=== PATIENT | female | born 1970 | race Caucasian/White ===

== ENCOUNTER 2016-12-06 05:35 | Outpatient (CLI) | payer BC ==
[~2016-12-06] VITALS: Ht 177.8 cm; Wt 72.6 kg
[2016-12-07] MEDS ORDERED: IBUP-1773 PO (10:09)
== END 2016-12-06 10:48 ==
LOC: PREOP 05:35
PROVIDERS: ATTEND Obstetrics & Gynecology
DX: Z01.818 Encounter for other preprocedural examination (principal); N93.9 Abnormal uterine and vaginal bleeding, unspecified; N85.2 Hypertrophy of uterus

== ENCOUNTER 2016-12-07 07:51 | Day surgery (SDC) | payer BC ==
[~2016-12-07] VITALS: Ht 177.8 cm; Wt 72.6 kg
[~2016-12-07 07:51] MED LIST: LACTATED RINGERS 1,000 ML IV PRN
[2016-12-07 08:22] VITALS: BP 111/69
[2016-12-07] MEDS ORDERED: LACTATED RINGERS 1,000 ML IV ONE (08:26)
[2016-12-07] MEDS ORDERED: SEVOFLURANE (ULTANE) 15 ML INHAL SOLN ONE ×3 (08:26→09:35)
[2016-12-07] MEDS ORDERED: DEXAMETHASONE 10 MG/ML (DECADRON) 1 ML VIAL ONE (08:26)
[2016-12-07] MEDS ORDERED: LIDOCAINE 2% 20 ML (XYLOCAINE) VIAL ONE (08:26)
[2016-12-07] MEDS ORDERED: ONDANSETRON 4 MG/2 ML (SDV) Z0FRAN ONE ×2 (08:26→09:44)
[2016-12-07] MEDS ORDERED: MIDAZOLAM 2 MG/2 ML (VERSED) VIAL ONE (08:26)
[2016-12-07] MEDS ORDERED: fentaNYL INJECTION 100 MCG/2 ML AMP ONE (08:26)
[2016-12-07] MEDS ORDERED: proPOfol 200 MG/20 ML (DIPRIVAN) VIAL IV ONE (08:26)
[2016-12-07 08:27] LABS: BASOPHILS % (AUTO) 0 % (0-10); EOSINOPHILS # (AUTO) 0.1 10^3/uL (0.0-0.3); EOSINOPHILS % (AUTO) 1 % (0-10); LYMPHOCYTES # (AUTO) 1.4 X 10^3 (1.0-4.0); LYMPHOCYTES % (AUTO) 27 % (12-44); MEAN CORPUSCULAR HEMOGLOBIN 30 PG (25-34); MEAN CORPUSCULAR HGB CONC 33 G/DL (32-36); MEAN CORPUSCULAR VOLUME 91 FL (80-99); MEAN PLATELET VOLUME 10.3 FL (7.4-10.4); MONOCYTES # (AUTO) 0.7 X 10^3 (0.0-1.0); MONOCYTES % (AUTO) 12 % (0-12); NEUTROPHILS # (AUTO) 3.2 X 10^3 (1.8-7.8); NEUTROPHILS % (AUTO) 60 % (42-75); PLATELET COUNT 206 10^3/uL (130-400); RED BLOOD COUNT 4.58 10^6/uL (4.35-5.85); RED CELL DISTRIBUTION WIDTH 13.4 % (10.0-14.5); WHITE BLOOD COUNT 5.3 10^3/uL (4.3-11.0)
[2016-12-07] MEDS ORDERED: BUPIVACAINE 0.25% 30 ML (SENSORCAINE) VIAL ONE (08:37)
--- NOTE | 2016-12-07 09:14 | Progress Note-Pre Operative ---
Pre-Operative Progress Note H&P Reviewed The H&P was reviewed, patient examined and no changes noted. Date Seen by Provider: Dec 07, 2016 Time Seen by Provider: 09:14 Date H&P Reviewed: Dec 07, 2016 Time H&P Reviewed: 09:10 Pre-Operative Diagnosis: AUB, thickened endometrium THOMAS MORALES DO Dec 07, 2016 9:14 am
[2016-12-07] MEDS ORDERED: morphine INJ 10 MG/ML 1ML (SYR OR VIAL) ONE (09:44)
[2016-12-07] MEDS ORDERED: ONDANSETRON 4 MG/2 ML (SDV) Z0FRAN IVP PRN ×2 (09:45→10:00)
[2016-12-07] MEDS ORDERED: morphine INJ 10 MG/ML 1ML (SYR OR VIAL) IVP PRN (09:45)
[2016-12-07] MEDS ORDERED: D5 LR IV SOLUTION 1,000 ML IV SCH (09:57)
[2016-12-07] MEDS ORDERED: APAP 300 MG/CODEINE 30 MG (TYLENOL #3) TAB PO ONE (10:00)
[2016-12-07] MEDS ORDERED: KETOROLAC 30 MG/ML VIAL ONE (10:00)
[2016-12-07] MEDS ORDERED: KETOROLAC 30 MG/ML VIAL IVP ONE (10:00)
--- NOTE | 2016-12-07 10:01 | Progress Note-Post Operative ---
Post-Operative Progess Note Surgeon (s)/Pricing Manager (s) Surgeon THOMAS MORALES DO Pricing Manager: none Pre-Operative Diagnosis AUB, thickened endometrium Post-Operative Diagnosis same Procedure & Operative Findings Date of Procedure 12/07/16 Procedure Performed/Findings D and C with hysteroscopy Anesthesia Type GETA Estimated Blood Loss Estimated blood loss (mL): min Specimens/Packing Specimens Removed endometrial curettings THOMAS MORALES DO Dec 07, 2016 10:01 am
[2016-12-07] MEDS ORDERED: IBUP-1773 PO ×2 (10:09)
--- NOTE | 2016-12-07 10:10 | Discharge Inst-Women's Service ---
Discharge Inst-Women's Serv Depart Medication/Instructions New, Converted or Re-Newed RX: RX on Chart Consults/Follow Up Additional Follow Up: Yes Orders/Referrals 3 weeks follow up Activity Activity: Activity as Tolerated Driving Instructions: You May Drive NO SMOKING: NO SMOKING Nothing Inside Vagina: No Douching, No Valders, No Tampons Diet Discharge Diet: No Restrictions Symptoms to Report to : Bleeding Excessive, Pain Increased, Fever Over 101 Degrees F, Vaginal Bleeding Increase, Questions/Concerns For Any Problems or Questions: Contact Your Physician Skin/Wound Care Bathing Instructions: Shower (x 2 weeks) THOMAS MORALES DO Dec 07, 2016 10:10
[2016-12-07 10:40] VITALS: BP 128/74
[2016-12-07 11:40] VITALS: BP 119/78
--- OUTSIDE RECORDS SUMMARY | 2016-12-07 11:48 | XMS REPORT | Continuity of Care Document ---
Author Author [facility] Address Unknown Phone Unavailable Allergies Medications Problems Procedures Results Encounters ACCT No. Visit Date/Time Discharge Status Pt. Type Provider Facility Loc./Unit Complaint [id number] 04/06/2014 17:13:47 04/06/2014 23: 59:59 CLS Outpatient Aleksandra Huitron
[2016-12-07 12:30] VITALS: BP 119/78
--- NOTE | 2016-12-07 14:16 | OPERATIVE REPORT ---
DATE OF SERVICE: 12/07/2016 PREOPERATIVE DIAGNOSES: 1. Abnormal uterine bleeding. 2. Enlarged uterus. 3. Thickened endometrium on ultrasound. POSTOPERATIVE DIAGNOSES: 1. Abnormal uterine bleeding. 2. Enlarged uterus. 3. Thickened endometrium on ultrasound. PROCEDURE: Dilation and curettage, hysteroscopy. SURGEON: Dr. Thomas Morales. ANESTHESIA: General endotracheal. ESTIMATED BLOOD LOSS: Minimal. URINE OUTPUT: 75 mL of urine drained at the end of the procedure. FLUIDS: 100 mL of lactated Ringer's solution. SPECIMENS SENT: Endometrial curettings. FINDINGS: A fluffy appearing, thickened endometrium in the lower uterine segment suspicious for endometrial polyp, grossly normal-appearing endometrial, otherwise no endometrial masses or irregularities. Normal external female genitalia. Normal vaginal mucosa. INDICATIONS FOR PROCEDURE: This 46-year-old female was seen in consultation in my office for episodes of abnormal bleeding. In the office it was discussed in detail endometrial biopsy verses proceeding with dilation and curettage both for diagnostic and curative purposes due to potential for occurring any abnormal episodes of bleeding. We discussed and agreed to go ahead with dilation and curettage. The risks of the procedure was discussed with the patient in detail including risk of bleeding, infection, damaging the surrounding structures including but not limited to uterus, bowel and bladder, postoperative hematoma formation, uterine perforation, postoperative thromboembolic events. After all of the patient's questions were answered consent was obtained in the preoperative area and the patient was taken to operating room. OPERATIVE REPORT IN DETAIL: Once in the operating room, general anesthesia was found to be adequate. The patient was placed in the dorsal lithotomy position, prepped and draped in the normal sterile fashion. She was first examined under anesthesia. The uterus was mildly enlarged, freely mobile. There were no adnexal fullness or masses appreciated on bimanual examination. A weighted speculum was inserted in the patient's vagina. A right angle retractor was used to visualize the cervix and grasped at the 12 o'clock position using a long Allis clamp. Paracervical block was then performed at 3 and 9 o'clock positions. There was 5 mL injected at each injection site. Care was taken to aspirate before injecting, after which I then proceeded with sounding the uterine cavity. The depth was found to be approximately 10 cm. I then gently dilated the cervix using Hegar dilators to allow for the true clear hysteroscope to be progressed to the cervix. I then advanced the true clear hysteroscope to the cervix using normal saline as my visual medium. I am able to document my findings above. I then removed the hysteroscope and performed a light curet using the medium endometrial curet and collected these curettings as endometrial curettings and sent to pathology as such. I then performed a second look using the true clear and normal saline as my visual medium. There appears to be resolution of the previously mentioned extra endometrial tissue and endometrial polyp. I then removed the hysteroscope at that point and emptied the patient's bladder using straight catheterization. I removed all the instruments from the patient's vagina. The patient tolerated the procedure well and was sent to recovery area in stable condition. Lap, sponge, needle counts were correct at the end of the procedure. Instrument count is correct as well. Job ID: [id number] DocumentID: [id number] Dictated Date: 12/07/2016 10:15:33 Meat Passer Date: 12/07/2016 14:15:03 Dictated By: THOMAS MORALES DO [email or web address]
== END 2016-12-07 12:30 | disposition home or self-care (01) ==
LOC: SDC 07:51
PROVIDERS: ATTEND Obstetrics & Gynecology
DX: N93.9 Abnormal uterine and vaginal bleeding, unspecified (principal); N85.2 Hypertrophy of uterus; R93.8 Abnormal findings on diagnostic imaging of other specified body structures
CPT/HCPCS: 36415; 84703; 85025; 86850; 86900; 86901; 87081; 88305

== ENCOUNTER → 2018-03-21 | Outpatient (CLI) | payer BC ==
[~2018-03-21] MED LIST changes: +IBUP-1773 PO; -LACTATED RINGERS 1,000 ML IV PRN
--- NOTE | 2018-03-21 17:51 | Diagnostic Imaging Report ---
EXAMINATION: Pelvic ultrasound. INDICATION: Pelvic pressure. COMPARISON: There are no prior studies available for comparison. FINDINGS: The uterus is nongravid and not enlarged measuring 6.6 x 4.2 x 4.2 cm; however, along the uterine body/fundus, there is a 2.5 x 1.9 x 2.4 cm area of slightly altered echogenicity. This finding is suspicious for a fibroid. The endometrial lining is not thickened measuring 5 mm. The right ovary was visualized and was generally unremarkable. There is no sign of torsion. The left ovary could not be clearly identified. There was a lengthy vascular tubular structure in the left adnexa. This is probably related to the bowel. There is no solid pelvic mass or free fluid collection noted. IMPRESSION: 1. The 2.5 x 2.4 cm area of altered echogenicity along the uterine fundus is suspicious for a fibroid. 2. The right ovary is unremarkable. The left ovary could not be clearly visualized. 3. The tubular vascular structure in the left adnexa is probably related to the bowel. 4. If clinical concern regarding an acute abnormality persists, then CT of the abdomen and pelvis would be recommended for further study. Dictated by: Dictated on workstation # [id number]
== END ==
LOC: RAD 15:22
PROVIDERS: ATTEND Obstetrics & Gynecology
DX: D25.1 Intramural leiomyoma of uterus (principal)
CPT/HCPCS: 76830; 76856

== ENCOUNTER → 2018-11-28 | Outpatient (CLI) | payer BC ==
--- NOTE | 2018-11-28 17:53 | Diagnostic Imaging Report ---
PROCEDURE: US Non-OB pelvis comp/trans. TECHNIQUE: Multiple realtime grayscale images were obtained of the pelvis in various projections endovaginally. Transabdominal imaging was also performed. INDICATION: Pelvic pressure. FINDINGS: The uterus measures 8.2 x 6 x 5.3 cm. Endometrial thickness is 4 mm. Right ovary is normal in size and morphology and demonstrates normal blood flow. Left ovary is not visualized. There are no adnexal masses. There is no free pelvic fluid. IMPRESSION: 4.3 cm cyst in the right ovary; otherwise, unremarkable pelvic ultrasound. The left ovary was not visualized. Dictated by: Dictated on workstation # [id number]
== END ==
LOC: RAD 14:48
PROVIDERS: ATTEND Obstetrics & Gynecology
DX: N83.201 Unspecified ovarian cyst, right side (principal)
CPT/HCPCS: 76830; 76856